=== PATIENT | female | born 1970 | race Caucasian/White ===

== ENCOUNTER 2021-06-27 08:03 | Emergency (ER) | payer OTHER ==
[~2021-06-27] VITALS: Ht 160 cm; Wt 72.6 kg
[~2021-06-27 08:03] MED LIST: ULTRACET PO
== END 2021-06-27 14:47 | disposition home or self-care (01) ==
LOC: ER 08:03
DX: N20.0 Calculus of kidney (principal); R10.12 Left upper quadrant pain